=== PATIENT | female | born 1950 | race African-American/Black ===

== ENCOUNTER 2018-03-22 07:28 | Day surgery (SDC) | payer MEDICARE, MEDICAID ==
[~2018-03-22] VITALS: Ht 167.6 cm; Wt 68.9 kg
--- NOTE | ~2018-03-22 | OP ---
PATIENT NAME: SANG VELASQUEZ MEDICAL RECORD: [id number] :46 LOCATION:[facility] ADMISSION DATE: SURGEON: MARY BOWMAN MD DATE OF OPERATION: 03/22/2018 PREOPERATIVE DIAGNOSIS: Lumbar spinal stenosis at L4-L5 and L5-S1 on the right. POSTOPERATIVE DIAGNOSIS: Lumbar spinal stenosis at L4-L5 and L5-S1 on the right. SURGEON: Mary Bowman MD PROCEDURES: Lumbar laminotomy, medial facetectomy and foraminotomy at L4-L5 and L5-S1 on the right with METRx retractor. DESCRIPTION AND TECHNIQUE: After induction of general endotracheal anesthesia, the patient was rolled prone on the Warren frame. Lumbar spine was prepped and draped in usual sterile fashion. Fluoroscopic x-ray and spinal needle localized the L4-L5 interspace on the right side. A series of dilators was used to advance a METRx retractor to the L4-L5 interspace on the right side. Flow was confirmed with fluoroscopic x-ray. A microscope and [employer] Jean-Paul drill were used to perform a laminotomy, medial facetectomy and foraminotomy at L4-L5 on the right as well as L5-S1 on the right. Hypertrophied ligamentum flavum was removed at both levels. Foraminotomy was carried out with Cloward rongeurs at each level. Each level was confirmed with fluoroscopic x-ray. The L5 and S1 nerve roots were decompressed as well at the conclusion of the procedure. The METRx retractor was removed and then the fascia was closed with 2-0 Vicryl suture. Subdermal layer was closed with 3-0 Vicryl suture. The skin was closed with anand. A sterile dressing was applied to the wound. The patient was awakened in good condition, taken to recovery. All counts were reported as correct. Estimated blood loss was minimal. TRANSINT:[id number] Voice Confirmation ID: [id number] DOCUMENT ID: [id number] MARY BOWMAN MD at 1709 CC: [id number] DICTATION DATE: 04/04/18 1003 [employer] SET UP WORKER: 04/04/18 1202 [facility] 03/22/18 [place] [address]
[~2018-03-22 07:28] MED LIST: MAG-OXIDE400 MG PO; PRAVACHOL20 MG PO; ZANTAC150 MG PO
[2018-03-22 07:58] LABS: HEMATOCRIT 44.2 % (36.0-48.0); MCHC 33.9 g/dL (31.0-37.0); MCV 82.6 fL (80.0-100.0); MEAN PLATELET VOLUME 8.7 fL (7.4-10.4); RBC 5.35 10x6/uL (4.00-5.40); RDW 14.6 % (11.5-14.5); WBC 5.2 10x3/uL (4.8-10.8)
[2018-03-22 08:15] LABS: ANION GAP 8.2 mmol/L (8-16); CALCIUM 9.2 mg/dL (8.5-10.1); CARBON DIOXIDE 32.8 mmol/L (21.0-32.0)
[2018-03-22] MEDS ORDERED: CARTIA XT120 MG PO (08:52)
[2018-03-22] MEDS ORDERED: ANORO ELLIPTA1 EACH INH (08:52)
[2018-03-22] MEDS ORDERED: PROAIR HFA8.5 GM INH (08:54)
[2018-03-22] MEDS ORDERED: ROBITUSSIN AC (10 M1 PO (08:57)
[2018-03-22 09:21] VITALS: BP 160/70; Ht 167.6 cm; Wt 68.9 kg
== END 2018-03-22 16:35 | disposition home or self-care (01) ==
LOC: D.OPS 07:28
PROVIDERS: Anesthesiology
DX: M54.16 Radiculopathy, lumbar region (principal)

== ENCOUNTER → 2019-10-17 09:06 | Outpatient (CLI) | payer MEDICARE, MEDICAID ==
[2018-03-22 09:21] VITALS: BMI 24.5
[~2019-10-17 09:06] MED LIST changes: +ANORO ELLIPTA1 EACH INH; +CARTIA XT120 MG PO; +PROAIR HFA8.5 GM INH; +ROBITUSSIN AC (10 M1 PO
== END | disposition home or self-care (01) ==
LOC: D.RAD 09-27 13:00 → D.RT 09-27 13:30
PROVIDERS: ATTEND Internal Medicine Pulmonary Disease
DX: J44.9 Chronic obstructive pulmonary disease, unspecified (principal)